=== PATIENT | female | born 2000 | race Caucasian/White ===

== ENCOUNTER 2021-08-25 18:44 | Emergency (ER) | payer OTHER | END 2021-08-25 21:38 | disposition home or self-care (01) | LOC: ER1 18:44 | DX: S93.602A Unspecified sprain of left foot, initial encounter (principal); S20.212A Contusion of left front wall of thorax, initial encounter; V49.9XXA Car occupant (driver) (passenger) injured in unspecified traffic accident, initial encounter | CPT/HCPCS: 71045; 73630; 99284 ==